=== PATIENT | female | born 1965 | race Asian ===

== ENCOUNTER 2016-06-11 17:42 | Emergency (ER) | payer OTHER ==
[~2016-06-11] VITALS: Wt 50.0 kg
[~2016-06-11 17:42] MED LIST: IBUP-1542 PO
[2016-06-11] MEDS ORDERED: IBUPROFEN 600 MG TAB PO ONE (20:30)
[2016-06-11] MEDS ORDERED: IBUP-1542 PO (20:32)
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
== END 2016-06-11 21:25 | disposition home or self-care (01) ==
LOC: FTE 17:42
DX: S20.212A Contusion of left front wall of thorax, initial encounter (principal); Y04.0XXA Assault by unarmed brawl or fight, initial encounter
CPT/HCPCS: 71010; Z7502; Z7610